=== PATIENT | female | born 1950 | race Caucasian/White ===

== ENCOUNTER 2016-11-20 15:28 | Emergency (ER) | payer OTHER, MEDICARE ==
[~2016-11-20 15:28] MED LIST: CIPRO500 M1 PO
[2016-11-20 16:03] LABS: ABSOLUTE BASOPHIL COUNT 0 /CUMM (0.0-0.2); ABSOLUTE EOSINOPHIL COUNT 0.2 /CUMM (0.0-0.7); ABSOLUTE GRANULOCYTE CT 5.1 /CUMM (1.4-6.5); ABSOLUTE LYMPH COUNT 2.2 /CUMM (1.2-3.4); BASOPHIL % 0.3 % (0.0-2.0); EOSINOPHIL % 1.8 % (0-5); GRANULOCYTE % 59.8 % (42.2-75.2); HEMATOCRIT 47.7 % (37-47); MEAN CORPUSCULAR HGB 35.1 PG (27.0-31.0); MEAN CORPUSCULAR HGB CONC 34.8 G/DL (33.0-37.0); MEAN PLATELET VOLUME 8.3 FL (7.4-10.4); PLATELET COUNT 242 /CUMM (130-400); RBC DISTRIBUTION WIDTH 13.3 % (11.5-14.5); RED BLOOD CELL CT 4.73 /CUMM (4.20-5.40); WHITE BLOOD CELL COUNT 8.5 /CUMM (4.8-10.8)
--- NOTE | 2016-11-20 17:46 | ED GI/GU/ABDOMINAL COMPLAINT ---
History of Present Illness General Chief Complaint: Abdominal Pain/Flank Pain Stated Complaint: PT HAS PAIN IN ABDOMINAL PAIN, Source: patient, old records Exam Limitations: no limitations Vital Signs & Intake/Output Vital Signs & Intake/Output Vital Signs Date Time Temp Pulse Resp B/P Pulse O2 O2 Flow FiO2 Ox Delivery Rate 11/20 1819 97.6 90 18 134/80 96 Room Air Room Air 11/20 1539 97.8 106 18 132/86 95 Room Air Allergies Coded Allergies: No Known Allergies (02/11/16) Reconcile Medications Ciprofloxacin HCl (Cipro) 500 MG TABLET 1 TAB PO BID INFECTION Magnesium Citrate (Citrate Of Magnesia) 300 ML SOLUTION 300 ML PO DAILY PRN CONSTIPATION Triage Note: 66 Y/0 FEMALE C/O BILATERAL LOWER ABDOMINAL PAIN X 3 WEEKS; STATES PAIN IS INTERMITTENT AND DENIES PAIN AT PRESENT. PT ALSO C/O CONSTIPATION (LAST BM 4 DAYS AGO AND "SMALL" PER PT). PT STATING SHE STOPPED DRINKING WEEKS AGO AND SAW ON TV THAT DRINKING CAN CAUSE "GASTRO PROBLEMS" SO SHE CAME TO ED FOR EVAL. ALSO REPORTS INTERMITTENT URINARY DIFFICULTIES ("I GET THE URGE TO GO BUT THEN I ONLY GO IN A FEW DROPS"). PT APPEARS IN NO ACUTE DISTRESS DURING TRIAGE. Triage Nurses Notes Reviewed? yes ? N Is pt currently ? No Onset: Gradual Duration: day(s): (4), constant Timing: recent history Quality/Severity: aching, BLOATING Severity Numbers: 5 Location: generalized abdomen Radiation: no radiation Activities at Onset: none Prior Abdominal Problems: none No Modifying Factors: none Associated Symptoms: DENIES HPI: 66-year-old female presents emergency room with history of hypothyroid depression complaining constipation for the past one half weeks however worse over the past 4 days stating she has not had a bowel movement in 4 days. She is complaining of generalized abdominal bloating pressure pain. She's been using uiyt-[id number] stool softeners without improvement. She denies any nausea vomiting no black or bloody stools. Patient states that the past she was drinking one 24 ounce can of beer a night however stopped 12 days ago and read online that this could be cause of stopping the alcohol. No history of abdominal surgeries in the past she's never been seen by GI or had a colonoscopy before. No recent weight loss. She denies any black or bloody stools prior to these episodes occurring. She denies any chest pain, shortness of breath urinary symptoms or any other complaints or no modifying factors or associated symptoms otherwise (RADHAMES DIAZ) Past History Travel History Traveled to [place] past 21 day No Medical History Any Pertinent Medical History? 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 No (RADHAMES DIAZ) Review of Systems Review of Systems Constitutional: Reports: see HPI. All Other Systems: Reviewed and Negative Comments Review of systems: See HPI, All other systems negative. Constitutional, no chills no fever, no malaise HEENT: No visual changes no sore throat no congestion Cardiovascular: No chest pain , no palpitation Skin, no jaundice no rashes, no change in skin Respiratory: No dyspnea no cough no sputum GI: No nausea no vomiting, no diarrhea : No dysuria Muscle skeletal: No joint pain, no back pain, no neck pain, Neurologic: No numbness no headache Psych: No stress Heme/endocrine: No bruising no bleeding Immunology: No lymphadenopathy (RADHAMES DIAZ) Physical Exam Physical Exam General Appearance: well developed/nourished, no apparent distress, alert, awake Gastrointestinal: normal bowel sounds, soft, non-tender, no organomegaly Comments: Well-developed well-nourished person in no acute distress HEENT: Normal EENT exam; PERRL, EOMI, HEAD is atraumatic. moist mucous membranes. Neck: Supple, no lymphadenopathy, normal range of motion Back: Nontender, no CVA tenderness. Full range of motion Cardiovascular: Regular rate and rhythms no murmurs rubs Respiratory: No respiratory distress. Patient speaking in full complete sentences. Breath sounds clear to auscultation bilaterally: NO W/R/R Abdomen: Soft, nontender nondistended, no appreciable organomegaly. Normal bowel sounds. No rebound/guarding, No appreciable enlargement of the abdominal aorta, No ascites. Extremity: No edema, full range of motion of extremities Neuro: Alert oriented x3, motor sensory normal, There were no obvious focal neurologic abnormalities. Skin: No appreciable rash on exposed skin, skin is warm and dry. Psych: Mood and affect is normal, memory and judgment is normal. Core Measures ACS in differential dx? No Severe Sepsis Present: No Septic Shock Present: No (ELVA PEREYRA,RADHAMES) Progress Differential Diagnosis: AAA, appendicitis, biliary colic, bowel obstruction, colon cancer, cholecystitis, diverticulitis, endometritis, esophageal varices, gastritis, hepatitis, hernia, ischemic bowel, inflamm bowel dis, kidney stone, Bebe-Yoko tear, ovarian cyst, ovarian torsion, pancreatitis, peptic ulcer, PUD/GERD, perforated viscous, SBO, UTI/pyelo Plan of Care: Orders Procedure Date/time Status URINALYSIS 11/20 1541 Complete LIPASE 11/20 1541 Complete LACTIC ACID 11/20 1541 Complete COMPREHENSIVE METABOLIC PANEL 11/20 1541 Complete CBC WITHOUT DIFFERENTIAL 11/20 1541 Complete AMYLASE 11/20 1541 Complete Laboratory Tests 11/20/16 1841: Lactic Acid Cancelled 11/20/16 1556: Urine Color YEL, Urine Clarity CLEAR, Urine pH 7.0, Ur Specific [place] 1.010, Urine Protein NEG, Urine Ketones NEG, Urine Nitrite NEG, Urine Bilirubin NEG, Urine Urobilinogen 0.2, Ur Leukocyte Esterase NEG, Ur Microscopic EXAM NOT REQUIRED, Urine Hemoglobin NEG, Urine Glucose NEG 11/20/16 1552: Anion Gap 9, Estimated GFR > 60, BUN/Creatinine Ratio 21.1, Glucose 104 H, Lactic Acid 0.7, Calcium 10.1, Total Bilirubin 0.3, AST 22, ALT 24, Alkaline Phosphatase 57, Total Protein 6.9, Albumin 4.1, Globulin 2.8, Albumin/Globulin Ratio 1.5, Amylase 66, Lipase 205, CBC w Diff NO MAN DIFF REQ, RBC 4.73, MCV 101.0 H, MCH 35.1 H, RDW 13.3, MPV 8.3, Gran % 59.8, Lymphocytes % 26.1, Monocytes % 12.0 H, Eosinophils % 1.8, Basophils % 0.3, Absolute Granulocytes 5.1, Absolute Lymphocytes 2.2, Absolute Monocytes 1.0 H, Absolute Eosinophils 0.2, Absolute Basophils 0, PUBS MCHC 34.8 Discussed with patient and all her lab results, given duration of symptoms prescription for magnesium citrate was provided advised close follow-up with GI as well as primary care given labs agents exam is unremarkable her abdomen is soft nontender I do not believe imaging is required at this time she is a healthy female with no other comorbidities I discussed with her need for close follow-up however even possible differential if symptoms persist the patient feels chondral plan I answered all of her questions she will return anytime sooner if symptoms worsen case discussed with Dr. LIN agrees with plan (RADHAMES DIAZ) Initial ED EKG: none (RADHAMES DIAZ) Departure Departure Time of Disposition: 1803 Disposition: HOME OR SELF CARE Condition: Stable Clinical Impression Primary Impression: Constipation Referrals: YANET PATRICK,RENY PEREYRA,PHILIP EDWARDS (PCP/Family) Additional Instructions: FOLLOW UP WITH YOUR PMD TOMORROW FOR REPEAT EVALUATION ON THURSDAY [employer] DR HOLT. MAGNESIUM CITRATE DIRECTED. DRINK PLENTY OF CLEAR FLUIDS, INCREASE FIBER INTAKE. RETURN AT ANYTIME SOONER WITH ANY CONCERNS YOUR PRESCRIPTION WAS SENT TO [facility] Departure Forms: Customer Survey General Discharge Information Prescriptions: Current Visit Scripts Magnesium Citrate (Citrate Of Magnesia) 300 ML PO DAILY PRN CONSTIPATION #600 ML (RADHAMES DIAZ) PA/RETORT FURNACE OPERATOR Co-Sign Statement Statement: ED Attending supervision documentation- [X] I saw and evaluated the patient. I have also reviewed all the pertinent lab results and diagnostic results. I agree with the findings and the plan of care as documented in the PA's/RETORT FURNACE OPERATOR's documentation. [X] I have reviewed the ED Record and agree with the PA's/RETORT FURNACE OPERATOR's documentation. [] Additions or exceptions (if any) to the PAs/RETORT FURNACE OPERATOR's note and plan are summarized below: [] (DELIA PATRICK,SINA)
[2016-11-20] MEDS ORDERED: CITRATE OF MAG300 ML PO (18:06)
[2016-11-20 18:19] VITALS: BP 134/80
== END 2016-11-20 19:01 ==
LOC: ERH 15:28
PROVIDERS: Emergency Medicine
DX: K59.00 Constipation, unspecified (principal)
CPT/HCPCS: 81003

== ENCOUNTER 2017-05-17 10:50 | Inpatient (IN) | payer OTHER, MEDICARE ==
[~2017-05-17] VITALS: Ht 162.6 cm; Wt 49.0 kg
[~2017-05-17 10:50] MED LIST changes: +CITRATE OF MAG300 ML PO
--- NOTE | 2017-05-17 11:03 | NUR ---
TRIAGE: 67 Y/O FEMALE [place] FROM HOME. PD WAS CONTACTED BY PATIENT'S NEIGHBOR BECAUSE THEY HAD NOTICIED THE PATIENT BURYING HER PET CAT. PATIENT REPORTED THAT SHE "STRANGLED CAT AT 0400 THIS MORNING AND KILLED IT BECAUSE IT WAS THE DEVIL. AFTER REPORTING THAT SHE KILLED THE CAT, SHE ADMITTED TO BURYING IT UNDER AN KATARZYNA STATUE. ALSO NOW ADMITS TO SHOVING A LIT END OF A CIGARETTE IN HER CAT'S THROAT. PATIENT ARRIVES TEARFUL YET COMPLIANT. DENIES SUICIDALITY OR HOMICIDALITY. AGREEABLE WITH CURRENT PLAN OF CARE. WANDED BY SECURITY - CHANGING INTO [facility].
[2017-05-17 11:34] LABS: ABSOLUTE BASOPHIL COUNT 0 /CUMM (0.0-0.2); ABSOLUTE EOSINOPHIL COUNT 0.1 /CUMM (0.0-0.7); ABSOLUTE GRANULOCYTE CT 11.1 /CUMM (1.4-6.5); ABSOLUTE LYMPH COUNT 1.7 /CUMM (1.2-3.4); ABSOLUTE MONOCYTE COUNT 1.1 /CUMM (0.10-0.60); BASOPHIL % 0.1 % (0.0-2.0); EOSINOPHIL % 0.8 % (0-5); GRANULOCYTE % 78.9 % (42.2-75.2); MEAN CORPUSCULAR HGB 33.8 PG (27.0-31.0); MEAN CORPUSCULAR VOLUME 99.4 FL (81.0-99.0); MEAN PLATELET VOLUME 7.2 FL (7.4-10.4); PLATELET COUNT 263 /CUMM (130-400); RBC DISTRIBUTION WIDTH 13.5 % (11.5-14.5); RED BLOOD CELL CT 4.73 /CUMM (4.20-5.40); WHITE BLOOD CELL COUNT 14.1 /CUMM (4.8-10.8)
--- NOTE | 2017-05-17 11:50 | NUR ---
DR PLUMMER AT BEDSIDE FOR EVAL
--- NOTE | 2017-05-17 12:05 | ED PSYCHIATRIC COMPLAINT ---
History of Present Illness General Chief Complaint: Psychiatric Related Complaint Stated Complaint: BIBA BY PD, ISSUES WITH PET Source: patient, EMS, police Exam Limitations: PSYCHIATRIC DISORDER Allergies Coded Allergies: No Known Allergies (02/11/16) Reconcile Medications Ciprofloxacin HCl (Cipro) 500 MG TABLET 1 TAB PO BID INFECTION Levothyroxine Sodium (Synthroid) 50 MCG TABLET 0.05 MG PO 1/2 HR AC HYPOTHYROIDISM (Reported) Magnesium Citrate (Citrate Of Magnesia) 300 ML SOLUTION 300 ML PO DAILY PRN CONSTIPATION Risperidone (Risperdal) 1 MG TABLET 1 MG PO BID MOOD STABILIZER (Reported) Trazodone HCl 100 MG TABLET 100 MG PO AT BEDTIME SLEEP HELP (Reported) Triage Note: TRIAGE: 67 Y/O FEMALE KASIA FROM HOME. PD WAS CONTACTED BY PATIENT'S NEIGHBOR BECAUSE THEY HAD NOTICIED THE PATIENT BURYING HER PET CAT. PATIENT REPORTED THAT SHE "STRANGLED CAT AT 0400 THIS MORNING AND KILLED IT BECAUSE IT WAS THE DEVIL. AFTER REPORTING THAT SHE KILLED THE CAT, SHE ADMITTED TO BURYING IT UNDER AN KATARZYNA STATUE. ALSO NOW ADMITS TO SHOVING A LIT END OF A CIGARETTE IN HER CAT'S THROAT. PATIENT ARRIVES TEARFUL YET COMPLIANT. DENIES SUICIDALITY OR HOMICIDALITY. AGREEABLE WITH CURRENT PLAN OF CARE. WANDED BY SECURITY - CHANGING INTO [facility]. Triage Nurses Notes Reviewed? yes HPI: Patient presents on a police emergency evaluation request after killing her. According to the police report she strangler pet at about 4:00 this morning because it was "the devil". The police report also documents "after killing her cat placed it next to an [place] state because was "evil" in her neighbor's yard shoved a cigarette in the throat". Patient reports to me that she does not know why she is here in the emergency department. She recalls she was brought by ambulance but she cannot state who called the ambulance. I asked if it might have been a neighbor but she states that she generally keeps to herself. I suspect that it was a neighbor who called because the patient had apparently placed In the neighbor's yard along with the katarzyna statue. Patient has no specific complaints currently. 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 see below for history Family History Hx Contributory? No (MONICA PATRICK,SCARLET Dunbar) Review of Systems Review of Systems Constitutional: Denies: see HPI. (MONICA PATRICK,SCARLET Dunbar) Physical Exam Physical Exam General Appearance: see below Neurological/Psychiatric: see below Comments: General: Alert, calm, cooperative Head: Normocephalic, atraumatic Eyes: Normal inspection, no nystagmus, EOMI Ears: Normal inspection Nose: Normal inspection Throat: Moist mucosa Neck: Supple, no goiter Heart: Regular rate and rhythm, no murmurs rubs or gallops Lungs: Clear to auscultation bilaterally with good air entry Abdomen: Soft nontender nondistended, normal bowel sounds Chest: Nontender Extremities: Normal range of motion grossly, no tremors present, no cyanosis clubbing or edema of the upper extremities Neurologic: cranial nerves II through XII grossly intact, speech clear, gait normal Psychiatric: Relatively normal affect, although during interview the patient did not express any obvious delusions she was reluctant to provide much history (KAVITHA PATRICK,POLO Salamanca) SAD PERSONS SAD PERSONS Response Value Age <19 or >45 years? yes 1 Depression/Hopelessness? yes 2 Excessive Ethanol/Drug Use? yes 1 Rational Thinking Loss? yes 2 Social Support? has no support 1 Total 7 SAD PERSONS Done? yes (MONICA PATRICK,SCARLET Dunbar) Progress Differential Diagnosis: PSYCHOSIS, PARANOIA Comments: 05/17/2017 1:49:57 PM shortly after speaking with crisis (and ordering medications suggested) patient now seems to be escalating and becoming confrontational with the emergency department staff. I feel she now requires sedation to prevent harming herself or others. I feel this patient is psychotic and very likely paranoid given what she did to her cat. 05/17/2017 3:57:56 PM patient will be committed per crisis. (POLO PLUMMER MD) Plan of Care: Orders Procedure Date/time Status VALPROIC ACID 05/25 0600 Active Current Medications Sig/Alida Start time Last Medication Dose Stop Time Status Admin Divalproex Sodium 500 MG 05/21 AC (Depakote ER) Divalproex Sodium 250 MG 0805/21 08 AC (Depakote ER) Risperidone 2 MG 0800,05/21 08 AC (Risperidone) Risperidone 0.5 MG Q6P PRN 05/20 2145 AC (Risperidone) Acetaminophen 650 MG Q6P PRN 05/18 1330 AC 05/19 (Tylenol) 0147 Al Hydroxide/Mg 30 ML Q4-6 PRN PRN 05/18 1330 AC Hydroxide (Maalox Plus) Magnesium Hydroxide 30 ML AT BEDTIME NEED.. 05/18 1330 AC (Milk Of Magnesia) Levothyroxine Sodium 0.05 MG DAILY AC 05/18 1321 AC 05/21 (Synthroid) 0642 Trazodone HCl 100 MG QPM 05/17 2200 AC 05/20 (Desyrel) 9 Hand-Off Endorsed To: POLO PLUMMER MD Endorsed Time: 0700 Pending: consult (MONICA PATRICK,SCARLET Dunbar) Departure Departure Condition: Stable Referrals: DILAN PEREYRA,PHILIP EDWARSD (PCP/Family) Departure Forms: Customer Survey General Discharge Information (POLO PLUMMER MD) Departure Disposition: STILL A PATIENT Clinical Impression Primary Impression: Psychotic disorder Comments pt signed out to dr. loomis 05/17/17, 7pm pt signed out to dr. loomis 05/18/17, 7am (SCARLET LOOMIS MD) confrontational with the emergency department staff. I feel she now requires sedation to prevent harming herself or others. I feel this patient is psychotic and very likely paranoid given what she did to her cat. 05/17/2017 3:57:56 PM patient will be committed per crisis. (POLO PLUMMER MD) Hand-Off Endorsed To: POLO PLUMMER MD Endorsed Time: 0700 Pending: consult (MONICA PATRICK,SCARLET Dunbar) Departure Departure Condition: Stable Referrals: DILAN PEREYRA,PHILIP EDWARDS (PCP/Family) Departure Forms: Customer Survey General Discharge Information (POLO PLUMMER MD) Departure Disposition: STILL A PATIENT Clinical Impression Primary Impression: Psychotic disorder Comments pt signed out to dr. loomis 05/17/17, 7pm pt signed out to dr. loomis 05/18/17, 7am (MONICA PATRICK,SCARLET Dunbar)
--- NOTE | 2017-05-17 13:01 | NUR ---
CRISIS MEETING WITH PT IN ROOM 15
--- NOTE | 2017-05-17 14:02 | NUR ---
PT THREATENING STAFF AND COMING OUT OF ROOM 15. PT MEDICATED WITH ATIVAN 2MG, BENADRYL 50MG AND HALDOL 10MG IM. PT STATED "THE WORLD WAS OKAY THIS MORNING AND IF WE MEDICATE HER THINGS WOULD NOT BE OK AND THEY WOULD BE LOOKING FOR HER". SECURITY ASSISTED RNS IN GIVING IM MEDICATIONS. SITTER AT DOOR.
--- NOTE | 2017-05-17 14:31 | NUR ---
THIS RN CALLED DIETARY TO ORDER PT LUNCH TRAY
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
--- NOTE | 2017-05-17 15:48 | NUR ---
Pt. seen by Crisis. Pt. is delusional and needs hospitalization. Pt's infor was faxed to [facility] and [facility]. Pt. is also on a PEC which is in Crisis Office.
--- NOTE | 2017-05-17 15:52 | NUR ---
PT ASLEEP AT THIS TIME. RESPIRATIONS EQUAL AND UNLABORED. SITTER AT DOOR.
--- NOTE | 2017-05-17 16:47 | NUR ---
PER SITTER, DURING CHECKS THEY FOUND THAT PT HAD URINATED ON THE BED. PT WAS CHANGED, BED WAS CLEANED AND REMADE. SITTER AT DOOR.
--- NOTE | 2017-05-17 16:53 | NUR ---
URINE TRIO SENT TO LAB
--- NOTE | 2017-05-17 17:24 | NUR ---
PT ASLEEP AT THIS TIME ON HER LEFT SIDE. RESPIRATIONS EQUAL AND UNLABORED. SITTER AT DOOR.
--- NOTE | 2017-05-17 18:45 | NUR ---
SITTER AND MST HAD TO CHANGE PT'S SCRUBS AGAIN DUE TO PT WETTING THE BED. PT DROWSY BUT REDIRECTABLE. PT CHANGED, LINENS CHANGED. SITTER AT DOOR.
--- NOTE | 2017-05-17 19:30 | NUR ---
PT ASLEEP ON HER LEFT SIDE FACING DOOR. PT'S RESPIRATIONS ARE EQUAL AND UNLABORED. SITTER AT DOOR.
--- NOTE | 2017-05-17 21:09 | NUR ---
PT REMAINS ASLEEP AT THIS TIME. RESPIRATIONS EQUAL AND UNLABORED. SITTER AT DOOR.
--- NOTE | 2017-05-17 22:15 | NUR ---
PT CONTINUES TO SLEEP ON BED IN ROOM 15. SITTER AT DOOR.
--- NOTE | 2017-05-17 22:45 | NUR ---
PT ASLEEP AT THIS TIME AND WAS SEDATED WHEN AWOKEN FROM EARLIER MEDICATIONS. HOLDING TRAZADONE AND RISPERIDONE DOSE AT THIS TIME. SITTER AT DOOR.
--- NOTE | 2017-05-18 00:33 | NUR ---
PT ASLEEP SITTER IN PLACE.
--- NOTE | 2017-05-18 03:15 | NUR ---
PT ASLEEP NO CO SITTER IN PLACE.
--- NOTE | 2017-05-18 07:30 | NUR ---
PT IS AWAKE AND ALERT, BREAKFAST TRAY AT BEDSIDE. PT HAS NO COMPLAINTS AT THIS TIME. SITTER REMAINS AT DOORWAY
--- NOTE | 2017-05-18 10:36 | NUR ---
PT MEDICATED DOCUMENTED IN EMAR. PT REQUESTING TO SEE A HEALTH SANITARIAN. ANALYST PROGRAMMER SERVICES PAGED.
--- NOTE | 2017-05-18 13:58 | NUR ---
MEDICATED ORDERED (SEE MAR)
--- NOTE | 2017-05-18 15:43 | NUR ---
REPORT RECEIVED ON PT AND RN CARE ASSUMED SITTER REMAINS AT DOOR. PT REQUESTING TO SPEAK TO MEDICINAL PLANT PICKER AND HER PSYCHIATRIST. CRISIS NOTIFIED. CLINICAL STATUS OTHERWISE UNCHANGED
--- NOTE | 2017-05-18 16:05 | IP CRISIS DIAG ASSESS PSYCH ---
Diagnostic Assessment Basic Assessment Insurance Authorization: Insurance #1: Insurance name: MEDICARE A BEHAVIORAL HEALTH Phone number: Policy number: [id number] Group number: Authorization number: Per [facility] pt has medicare covered services only and does not have medicaid Primary Care Physician: Patient's PCP: PHILIP VILLARREAL PCP's Patient's Quote: "I want to see a Supervisor Reclamation" Present Illness: Pt. is a 67 year old female brought to ED on a PEER after neighbors called the police to report that pt. was burying her cat in their backyard. According to the PEER, pt. reported that she had strangled her pet cat at 4:00am today because it was the devil and then buried it next to an azalia statue in her neighbors yard. Pt. carries a diagnosis of Bipolar Disorder and has recently started treatment at the end of March at [facility] with Dr. Scherer. Dr. Scherer's last two progress notes from April 06 and May 04 do not indicate that pt. was delusional or experiencing any significant psychiatric symptoms at that time. Also, the progress notes indicate that Dr. Scherer had discontinued the Depakote that pt. had been on (prescribed by her previous psychiatrist, Dr. Ashok Arboleda in [place]) and had reduced the Risperdal that she had been on from 2mg to 1.5mg. When pt. was seen by this Floor Covering Printer, she was alert and oriented to time and place, but did not understand why she was brought to the ED. Pt. immediately asked to see a "digital marketing strategist ", telling this Floor Covering Printer that the people who sent her to the ED had told her that she would be able to talk to one when she got here. After this Clinician told pt. that she would not be able to talk to a felled seam operator chainstitch, she became somewhat angry but then did cooperate with interview. Pt's thought process was disorganized and tangential as she kept on reporting events from that had occurred 25 or more years ago whenever this Clinician asked what had happened to her cat this morning. Pt. also kept losing her train of thought, but eventually acknowledged that she strangled her pet cat this morning because it was the devil and that it was coming towards her and then scratched her on the arm. Pt. reported that she has been watching Moravian programming on TV recently and that they were giving her messages that were written across the bottom of the TV screen. Pt. also said that people were watching her through the TV. Pt. also told this Clinician that she had made a "deal" with God at some time in the past to be used by him to do his will. Pt. also reported that about 25 years ago, she had also strangled her pet dog because it turned into the devil. VILMA BROWN [facility]> 05/17/17 I called [facility] and [facility], as they were the only hospitals in [place] that had beds , and either one of them were able to review tonight, they received the referral and suggested to follow up Thursday. I tried calling her contact/collateral and did not answer. This evening pt was seen asleep, it was recommended unless she wake up not to disturb her as she had been previously agitated all shift, due to psychotic symptoms. If she wakes I will remind her that she is on a PEC and pending inpatient hospitalization. AGUEDA ENG [facility]> 05/17/17 Crisis met with pt in attempts to do a re-eval and she refused to talk to this clinician and demanded her felled seam operator chainstitch and psychiatrist come to speak with her. Informed pt that she is being Dr Mckinley noted that pt's sodium level is low. Dr. Verde recommended to restrict fluids by a "free Water restriction of 1500 ML and to repeat level tomorrow." Dr. Mckinley informed. JOSSELYN PARHAM [facility]> 05/18/17 Diagnostic assessment is limited as pt refused to speak with this clinician and therefore socail hx was not able to be completed. Patient's Address: [address] [place] [address] Other Phone Number: Who Do You Live With? Patient/Self Primary Language? Sami Family/Informants Interviewed: Principal Clerk Typist of [facility] where pt. lives (Frank Freeman) [phone] Allergies - Coded Allergies: No Known Allergies (02/11/16) Current Medications - Scheduled Medications Ciprofloxacin HCl (Cipro) 500 MG TABLET 1 TAB PO BID INFECTION #20 TAB Prescribed by SINA LIN MD on 02/11/16 Scheduled PRN Medications Magnesium Citrate (Citrate Of Magnesia) 300 ML SOLUTION 300 ML PO DAILY PRN CONSTIPATION #600 ML Prescribed by RADHAMES DIAZ on 11/20/16 Past History Past Surgical History Surgical History MASECTOMY (R) Abuse/Trauma History Trauma History/Current Trauma: refuses to answer Psychosocial History Strengths/Capabilities: In current treatment, has housing Physical Limitations (Interventions): None known Psychiatric Treatment History Psych Treatment Psychiatric Treatment Yes Inpatient Treatment Yes Outpatient Treatment Yes Location of Treatment OP-Dr. Delgadillo,Dr. Ry Shah,Dr. Awilda Shah; IP-[facility], one other Reason for Treatment Bipolar Disorder Dates of Treatment OP- last 25 years; IP - twice about 25 yrs. ago Response to Treatment unk Diagnosis by History: Bipolar Disorder Risk Factors: age (under 24/over 65), high anxiety/distress, history of Violence , history of suicide atmpts, SA/MH hospitalized, isolate/no social support, poor impulse control, harm to animals, lives alone, limited support Substance Use/Abuse History Drug Use/Abuse minimum 12mo Hx Substances Used/Abused No Substance Abuse Treatment Substance Abuse Treatment Past Substance Abuse [place] No Education History Highest Level of Education: not sure Current Mental Status Mental Status Orientation: Person, Place Affect: Constricted Speech: WNL Neuro-vegetative: Concentration Poor, Sleep Disturbance Appearance Appearance- Dress/Hygiene: WNL Behaviors Thought Process: Disorganized, Tangential Thought Content: Delusions, Ideas of Reference, Anabaptism Memory: WNL Insight: Poor SI/HI Risk Assessment - Minimum 6mo History- Past Suicidal Ideation/Attempts Yes (Pt. reports one by OD yrs ago) Current Suicidal Ideation/Att No (Pt. denies) Past Homicidal Ideation/Att: Yes (Killed two pets, one this AM) Current Homicidal Ideation/Attempts No (Pt. denies) Degree of Intent: None Danger To: Others (animals) Gravely Disabled: Inability, Lack of Insight, Poor Impulse Control, Poor Judgment Risk Factors: age (under 24/over 65), high anxiety/distress, history of Violence , history of suicide atmpts, SA/MH hospitalized, isolate/no social support, poor impulse control, harm to animals, lives alone, limited support Lethality Ratin (mild) Needs/Init [place] Plan/Goals: safety and stabilization of sx, individual group and family therapy, med eval AUDIT-C Questionnaire: AUDIT-C Questionnaire: Response Value ETOH use in the past year Never 0 # drinks typical/day Doesn't Drink 0 6 or > drinks per occasion Never 0 Total 0 DSM5/PS Stressors/Medical Prob Diagnosis' (DSM 5, Stressors, Medical): F31.2 - Bipolar I D/O, manic psychotic; Stressors - limjited support, new psychiatric provider recently. Medical - hypothyroidism Current GAF: 24 Comments: Delusional, recently killed pet cat because thought it was devil - gravely disabled and in need of hospitalization.
--- NOTE | 2017-05-18 16:05 | SOCIAL WORKER PROG NOTE PSYCH ---
See Addendum Social Work Progress Note Progress Note Unable to complete social hx as pt refused to speak to security control assessor.
--- NOTE | 2017-05-18 18:04 | NUR ---
RE-ASSESSMENT PERFORMED, CLINICAL STATUS UNCHANGED. SITTER REMAINS AT DOOR.
--- NOTE | 2017-05-18 20:23 | NUR ---
CLINICAL STATUS REMAINS UNCHANGED. ADMISSION TO [facility] ANTICIPATED. SITTER PRESENT
--- NOTE | 2017-05-18 22:53 | NUR ---
PT ADMITTED TO [facility], B--3, BED 2. ORAL REPORT GIVEN TO SAKINA SALDIVAR PT READY FOR TRANSFER
--- NOTE | 2017-05-18 23:00 | NUR ---
SECURITY CALLED TO TRANSFER PT TO [facility].
[2017-05-18 23:13] VITALS: BP 122/72
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
[2017-05-19] MEDS ORDERED: SYNTHROID50 MCG PO (00:26)
[2017-05-19] MEDS ORDERED: RISPERDAL1 M1 PO (00:28)
[2017-05-19] MEDS ORDERED: TRAZODONE HCL100 M1 PO (00:29)
--- NOTE | 2017-05-19 04:33 | NUR ---
AWAKE MOST OF THE NIGHT.
[2017-05-19 07:43] VITALS: BP 95/61
--- NOTE | 2017-05-19 11:31 | NUR ---
PATIENT IS CALM AND COOPERATIVE WITH STAFF AND UNIT RULES. UNSTABLE MOOD, LABILE AND TEARFUL AT TIMES. PATIENT STARTED CRYING DURING PLANNING MEETING DUE TO MISSING HER DOGS. PRESENT IN [facility], INTERACTS WITH [facility] AND STAFF. NORMAL APETITE. DENIES SI.
[2017-05-19 12:42] VITALS: BP 129/82
--- NOTE | 2017-05-19 12:57 | NUR ---
PT EDUCATED ON THE FACT THERE IS A 1,500ML FLUID RESTRICTION PLACED (PER PT SHE "HAD NO IDEA" AND INFORMED TO MONITOR THIS IT IS IMPORTANT RE: HER ELECTROLYTES AND VERBALIZED UNDERSTANDING. PER PT REPORT HAD APPROXIATELY 1,000CC OF FLUID AND UNDERSTANDS ONLY 500CC IS LEFT IN HER DAILY ALLOTTMENT. DR. SO PAGED AND AWAITING CALL BACK-WANT TO RUN BY IF THE FLUID RESTRICTION NEEDS TO BE CONTINUED (LEVEL OF SODIUM [id number]).
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
--- NOTE | 2017-05-19 13:25 | NUR ---
DR. SO REMINDED OF H&P AND ALSO INFORMED ON PT'S CURRENT SODIUM LEVEL AND PER MD THE FLUID RESTRICTION CAN BE DISCONTINUED.
[2017-05-19 15:51] VITALS: BP 92/59
--- NOTE | 2017-05-19 17:07 | History & Physical ---
General Information and HPI History of Present Illness: Patient is a 67-year-old female whose medical history is significant for hypothyroidism, breast cancer status post lumpectomy and mastectomy with radiation therapy 16 years ago, polycythemia status post phlebotomy therapy in the past and bipolar disorder. She was brought into the emergency room for evaluation by the police after labels called the Police Department reporting that she had killed a pet cat. In the emergency room she was found to have paranoid thoughts. Her symptoms began to escalate and she became confrontational. She was placed on a PEC on admitted to the inpatient psychiatric unit. She offers no complaints today. Denies chest pain or cough. Denies shortness of breath. Denies nausea vomiting. Denies abdominal pain. Denies diarrhea or constipation. Denies heat or cold intolerance. Denies dysuria. All other systems reviewed and noncontributory. Allergies/Medications Allergies: Coded Allergies: No Known Allergies (02/11/16) Home Med list Ciprofloxacin HCl (Cipro) 500 MG TABLET 1 TAB PO BID INFECTION Levothyroxine Sodium (Synthroid) 50 MCG TABLET 0.05 MG PO 1/2 HR AC HYPOTHYROIDISM (Reported) Magnesium Citrate (Citrate Of Magnesia) 300 ML SOLUTION 300 ML PO DAILY PRN CONSTIPATION Risperidone (Risperdal) 1 MG TABLET 1 MG PO BID MOOD STABILIZER (Reported) Trazodone HCl 100 MG TABLET 100 MG PO AT BEDTIME SLEEP HELP (Reported) Past History Travel History Traveled to [place] past 21 day No Medical History Neurological: NONE EENT: NONE Cardiovascular: NONE Respiratory: NONE Gastrointestinal: NONE Hepatic: NONE Renal: NONE Musculoskeletal: NONE Psychiatric: bipolar disease Endocrine: hypothyroidism Blood Disorders: NONE Cancer(s): breast cancer BUSINESS ASST/Reproductive: NONE History of MRSA: No History of VRE: No History of CDIFF: No Isolation History: Standard Surgical History Surgical History: RIGHT MASTECTOMY Past Family/Social History Psychosocial History Where do you live? 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 Exam & Diagnostic Data Last 24 Hrs of Vital Signs/I&O Vital Signs Date Time Temp Pulse Resp B/P B/P Pulse O2 O2 Flow FiO2 Mean Ox Delivery Rate 05/19 1551 93 92/59 05/19 1242 100 129/82 05/19 0743 96.8 98 95/61 07/17 2313 98.4 91 122/72 05/18 2239 98 Room Air 05/18 2011 97.1 94 16 121/84 98 Room Air Intake & Output 05/19 1600 05/19 0800 05/19 0000 Intake Total 1000 Output Total Balance 1000 Intake, Oral 1000 Patient 48.988 kg Weight Physical Exam General Appearance Alert, Oriented X3, Cooperative, No Acute Distress Skin No Rashes, No Breakdown, No Significant Lesion HEENT Atraumatic, PERRLA, EOMI, Mucous Membr. moist/pink Neck Supple Cardiovascular Regular Rate, Normal S1, Normal S2, No Murmurs Lungs Clear to Auscultation, Normal Air Movement Abdomen Normal Bowel Sounds, Soft, No Tenderness, No Hepatospenomegaly Neurological Cranial Nerves II through XII: WNL Extremities No Clubbing, No Cyanosis, No Edema, Normal Pulses Assessment/Plan Assessment: 67-year-old female with history of hypothyroidism, breast cancer status post mastectomy radiation therapy. Admitted for decompensation of bipolar disorder. On admission found to be hyponatremic with fluid distention overnight as sodium level has improved. She does admit to drinking up to 11 cups of coffee on a daily basis. She offers no medical complaints at present. Recommendations: - Okay to discontinue fluid restriction however I would not recommend patient drinking up to 11 cups of coffee daily. -Continue her Synthroid at her home dose. -She did have leukocytosis on admission likely reactive. Repeat CBCs a.m. -Management of her bipolar disorder as directed by the psychiatric service As Ranked By This Provider Problem List: 1. Psychotic disorder Miscellaneous Miscellaneous Documentation Attending Case Discussed With: PAMELA PATRICK,TYSHAWN Torres Primary Care Physician: PHILIP VILLARREAL Patient sees these Specialists Non Level of Patient Care: JENNIFER Low
--- NOTE | 2017-05-19 17:54 | SOCIAL WORKER PROG NOTE PSYCH ---
Social Work Progress Note Progress Note 4:45pm Scar Kellogg (PA student) and this sign writer letterer or painter met with patient for initial meeting. Patient shared the event in which she killed her cat believing that it was the devil. Patient was active, spontaneous and circumstantial in her participation in this meeting. Patient reported past MH tx with inpt admissions to [facility] and [facility] as well as outpatient treatment with most recent outpt tx occurring through OPS. Patient reported that her next appointment at Outpatient is scheduled for 09/01/17. Patient did not identify any supports or family with whom she is currently in contact. She reported two marriages and divorces and stated that she does not have any contact with her son. Patient expressed interest in meeting with a sofa inspector.
[2017-05-19 19:45] VITALS: BP 112/74
--- NOTE | 2017-05-19 21:20 | NUR ---
PT IS VISIBLE ON UNIT, SITTING IN LOUNGE AND SOCIAL WITH PEERS. COOPERATIVE AND COMPLIANT WITH STAFF. NO COMPLAINTS OR SI REPORTED. ATTENDED WRAP UP MEETING. PT HAS A STABLE MOOD AND FULL RANGE AFFECT.
--- NOTE | 2017-05-20 04:11 | NUR ---
AWAKE 1/2 THE SHIFT STATES "I DON'T SLEEP AT NIGHT".
[2017-05-20 07:41] VITALS: BP 100/55
[2017-05-20 08:11] LABS: ABSOLUTE BASOPHIL COUNT 0 /CUMM (0.0-0.2); ABSOLUTE EOSINOPHIL COUNT 0.2 /CUMM (0.0-0.7); ABSOLUTE GRANULOCYTE CT 5.2 /CUMM (1.4-6.5); ABSOLUTE LYMPH COUNT 1.7 /CUMM (1.2-3.4); BASOPHIL % 0.2 % (0.0-2.0); EOSINOPHIL % 2.5 % (0-5); GRANULOCYTE % 64.2 % (42.2-75.2); HEMATOCRIT 46.4 % (37-47); MEAN CORPUSCULAR HGB 33.7 PG (27.0-31.0); MEAN CORPUSCULAR HGB CONC 33.7 G/DL (33.0-37.0); PLATELET COUNT 260 /CUMM (130-400); RBC DISTRIBUTION WIDTH 13.6 % (11.5-14.5); RED BLOOD CELL CT 4.64 /CUMM (4.20-5.40); WHITE BLOOD CELL COUNT 8.2 /CUMM (4.8-10.8)
--- NOTE | 2017-05-20 10:40 | NUR ---
SPIRITUAL CARE NOTIFIED RE: THIS PT WOULD LIKE TO SPEAK TO A JEWISH ACCOUNTANT COST TODAY, AND THIS RN WAS TOLD ONE WOULD COME DOWN BETWEEN 4-5PM.
[2017-05-20 12:10] VITALS: BP 107/56; BP 112/72
--- NOTE | 2017-05-20 13:08 | NUR ---
PATIENT CALM AND COOPERATIVE WITH STAFF AND UNIT RULES. NORMAL MOOD WITH FLAT AFFECT TO FULL RANGE. PATIENT PRESENT IN [facility], INTERACTS WELL WITH STAFF AND PEERS. NO REPORTS OF SI. NORMAL APETITE.
--- NOTE | 2017-05-20 15:48 | SOCIAL WORKER PROG NOTE PSYCH ---
Social Work Progress Note Progress Note 2:00pm Scar Kellogg (PA student) and this flex o writer operator met with patient. Upon reviewing the events leading her to current inpt admission, patient became very tearful especially regarding the of her cat. Patient acknowledged the importance of remaining in treatment and taking her medications as prescribed. Dr. Valverde discussed medications and associated questions. She agreed to resume taking Depakote and completing lab (blood) work. Patient was also in agreement with attending IOP following discharge from [facility]. A d/c date has not yet been identified. Patient stated that she was informed that she would be meeting with a clergy today and was looking forward to this. Please see Dr. Valverde's note from this meeting for further information. Patient signed the voluntary admission form and included her landlord's name as "close friend." However, she did not identify any supports, including her landlord, that she could involve in treatment: "I have no one." She stated that she has been in contact with animal control and that they are caring for her dogs at this time. Patient did not want to sign any JUVE's at this time.
[2017-05-20 16:25] VITALS: BP 97/62
--- NOTE | 2017-05-20 17:41 | CP SOUTH PROGRESS NOTE PSYCH ---
Psych (Inpt) Progress Note Progress Note Include the following elements, when applicable: Involvement in the active treatment of the patient with behavioral observations of the patient and the patient's response to the treatment. Review of the ongoing treatment process in the context of the treatment plan. Indication of how multi-disciplinary staff members are carrying out the treatment plan. Plans for future interventions and recommendations for revision of the treatment plan. Liaison with other physicians/providers. Progress Note: PSYCHIATRIST NOTE, 05/20/2017: I discussed this patient's progress to date, current mental status, treatment and discharge planning with staff team today in the daily morning BAUTISTA and Rima Umanzor LCSW, our P.A. student Scar and I met with patient together once again in individual session. Patient continued to calmly express her conviction that she had been "personally directed by God" to kill her pet cat "because the Devil was inside him...he scratched me; he had not done something like this before." We have been trying to gently challenge and explain to patient that she was acting under a delusion though it seemed "very real" to her at the time and were more emphatic in this regard today causing patient some upset but apparent release/relief of tension afterwards. She has begun to genuinely mourn her cat John who she said had begun after years with her to begin to trust her and be more affectionate. Patient agreed to sign in as a voluntary patient and is also willing to attend the [facility]; she had been afraid we would "send [her] to another hospital." So long as she can go home from here ([facility]) patient is willing to stay at long as we think she needs to/would benefit from.
--- NOTE | 2017-05-20 18:28 | NUR ---
PT IS CALM, COOPERATIVE WITH STAFF AND PEERS, AND COMPLIANT WITH UNIT RULES. MOOD IS STABLE, AFFECT APPEARS EUTHYMIC TO FULL RANGE, COMMUNICATION IS ORGANIZED AND APPEARS NORMAL IN ALL RESPECTS, AND APPETITE IS NORMAL. PT DENIES SI AT THIS TIME.
[2017-05-20 19:47] VITALS: BP 123/74
--- NOTE | 2017-05-21 06:58 | NUR ---
PT ON A PEC. PT UP A FEW TIMES. PT BIZARRE, INTERNALLY PREOCCUPIED, BUT NO BEHAVIOR PROBLEM.
[2017-05-21 07:39] VITALS: BP 113/63
--- NOTE | 2017-05-21 09:34 | NUR ---
PT A/OX3; MOOD APPEARS STABLE WITH FLAT AFFECT, CALM AND COOPERATIVE, INTERACTING WITH PEERS AND STAFF IN COMMUNITY, COMPLIANT WITH MEDICATION AND RULES, MADE STATEMENT ABOUT WANTING TO GET BETTER AND FUTURE ORIENTED, DENIES SI/HI/CH AT THIS TIME. COMMUNICATION APPEARS ORGANIZED.
[2017-05-21 12:43] VITALS: BP 105/68
--- NOTE | 2017-05-21 12:53 | SOCIAL WORKER PROG NOTE PSYCH ---
Social Work Progress Note Progress Note 11:40am This advertising copy writer met with patient. She reported improved mood which she attributes to "Somebody believed me." She further discussed this to mean feeling supported and believed by Dr. Valverde and this advertising copy writer regarding her beliefs and experiences. Patient identified yesterday's conversation with this advertising copy writer and Dr. Valverde as a "relief." Patient stated that she was able to meet with a film library clerk last night which she greatly appreciated and plans to attend jainism after discharge from this hospital. She was motivated to continue with IOP once she discharges from the hospital. Patient denied SI/HI/AH/VH. She stated that she looks forward to meeting with Dr. Valverde this afternoon.
[2017-05-21 15:42] VITALS: BP 138/88
--- NOTE | 2017-05-21 19:04 | CP SOUTH PROGRESS NOTE PSYCH ---
Psych (Inpt) Progress Note Progress Note Include the following elements, when applicable: Involvement in the active treatment of the patient with behavioral observations of the patient and the patient's response to the treatment. Review of the ongoing treatment process in the context of the treatment plan. Indication of how multi-disciplinary staff members are carrying out the treatment plan. Plans for future interventions and recommendations for revision of the treatment plan. Liaison with other physicians/providers. Progress Note: PSYCHIATRIST NOTE, 05/21/2017: I discussed this patient's interval progress to date, current mental status , treatement and discharge planning with staff team today in the daily morning ITTM and our P.A. student, Scar, and I met with patient again together in individual session.Patient is tolerating 4mg/day dose of Risperdal and Depakote ER, 750mg daily (had been on just 250mg/day for years prior to its being discontinued in our OPS) well and continues to be positive re taking these medications. Today I thought it time to begin to more openly/actively challenge patient's belief that "God told her to kill her cat;" She began to cry and lamented "you mean I killed John [her cat] for absolutely nothing, that it was 'all in my head?'" This led to further discussion of the effects of psychosis on thinking and "beliefs," that she is a truly spiritism person but was "fooled by" her thought disorder to do something "for God" which God would not ask of her. Beginning to address what actually happened is actually bringing this patient more [id number], that she didn't do what she did "in [her] right mind " but can do things which will make things better and the tragedy with her cat never repeat itself. Patient has expressed her intent to start attending a local amish once again and not keep her spiritism thinking isolated just in her own mind.
[2017-05-21 20:09] VITALS: BP 122/78
--- NOTE | 2017-05-21 22:40 | NUR ---
PT HAS BEEN WITHDRAWN AND CONSTRICTED THIS SHIFT. PT HAS BEEN LETHARGIC AND ISOLATIVE BUT HAS BEEN COMPLIANT WITH STAFF AND UNIT RULES. PT HAS NOT REPORTED ANY ABNORMAL THOUGHTS AND NO ABNORMAL OBSERVATIONS HAVE BEEN MADE. PT DENIES ANY THOUGHTS OF SI WHEN ASKED BY STAFF.
[2017-05-22 07:59] VITALS: BP 100/72
[2017-05-22 12:48] VITALS: BP 139/84
--- NOTE | 2017-05-22 14:03 | SOCIAL WORKER PROG NOTE PSYCH ---
Social Work Progress Note Progress Note This credit underwriter met with patient this afternoon. She reported improvement with mood and stated that she has been sleeping well. However, patient did complain that her sleep schedule differs from the one at home and finds it difficult to adjust to this. She stated that she enjoys going to be early (around 6pm) and waking up in the environmental sampler hours as "I like being up at night when everything's quiet." Patient discussed feeling relieved after being able to discuss the events that led to current hospital admission with Dr. Valverde. She expressed regret/remorse over killing her cat and felt that she had been brainwashed by the [employer] television show that she was watching. Patient reports that she has found the groups helpful and continues to be in agreement with attending IOP following discharge from [facility].
--- NOTE | 2017-05-22 14:55 | NUR ---
PT IS COMPALINT AND COOPERATIVE WITH UNIT RULES. PT IS OUT IN THE COMMUNITY ITNERACTING WELL WITH STAFF AND PEERS. PT MOOD IS STABLE WTIH A FULL RANGE AFFECT. PT IS ATTENDING GROUPS. PT DENIES SI THOUGHTS.
[2017-05-22 15:47] VITALS: BP 119/58
--- NOTE | 2017-05-22 18:44 | NUR ---
PT IS CALM, COOPERATIVE WITH STAFF AND PEERS, AND COMPLIANT WITH UNIT RULES. OFTEN IN MILIEU, INTERCATIGN WELL WITH OTHERS. MOOD IS STABLE, AFFECT APPEARS EUTHYMIC TO FULL RANGE, COMMUNICATION IS ORGANIZED AND APPEARS NORMAL IN ALL RESPECTS, ADN APPETITE IS NORMAL. PT DENIES SI AT THIS TIME.
[2017-05-22 19:49] VITALS: BP 112/70
--- NOTE | 2017-05-22 21:20 | CP SOUTH PROGRESS NOTE PSYCH ---
Psych (Inpt) Progress Note Progress Note Include the following elements, when applicable: Involvement in the active treatment of the patient with behavioral observations of the patient and the patient's response to the treatment. Review of the ongoing treatment process in the context of the treatment plan. Indication of how multi-disciplinary staff members are carrying out the treatment plan. Plans for future interventions and recommendations for revision of the treatment plan. Liaison with other physicians/providers. Progress Note: PSYCHIATRIST NOTE, 05/22/2017: I discussed this patient's interval progress to date, current mental status , treatment and discharge planning with staff team today in the daily morning ITTM and also our P.A. student Scar and I met patient again together in individual session. Patient continues to express her dismay at having killed her own pet cat CRANE MANAGER but is coming to a better sense of the altered state of mind she was in at the time, how to treat this and be alert to danger signs of loosening and delusional, particularly hyper/pseudoreligiously themed thinking which led up to her believing "at the moment" that her cat was "possessed by" or "was the Devil taking the form of" this pet. Patient has met a men's furnishings salesperson here on [facility] and now plans to attend services and become involved in the community life and fellowship of a local [employer] [place] "down the street" from her; she views her increasing social isolation and solitary life as contributing to her being vulnerable to delusional "yazdanism" thinking; she also will not watch Leandro Amin on T.V. and more but stick to simple video masses on the "Mosque channel." Dose of Depakote ER has been titrated up to 1,000mg/day and initial serum valproic acid level will be drawn in AM 05/25/2017; patient had been on just 250mg of Depakote daily for years prior to it being discontinued as soon as she began medication management here in [facility]. Patient is tolerating upward titration of Risperdal to 4mg/day well and appears to be responding well to it without noted side effects, daytime sedation. We are strongly recommending patient f/u in the [facility] on discharge and that consideration be given there to beginning her on Risperdal Consta depot injections.
--- NOTE | 2017-05-23 06:54 | NUR ---
SLEPT FROM 2044 TO , THEN WAS AWAKE MOST OF THE NIGHT; SHE WAS REDIRECTED BACK TO BED ADN RESTED IN BED FOR MOST OF THE NIGHT AFTERWARDS; SHE WAS SLIGHTLY PARANOID AND IRRITABLE, INSISTING THAT SHE NEVER SLEEPS AT NIGHT.
[2017-05-23 07:35] VITALS: BP 119/70
[2017-05-23 12:32] VITALS: BP 110/71
--- NOTE | 2017-05-23 12:44 | CP SOUTH PROGRESS NOTE PSYCH ---
Psych (Inpt) Progress Note Progress Note Include the following elements, when applicable: Involvement in the active treatment of the patient with behavioral observations of the patient and the patient's response to the treatment. Review of the ongoing treatment process in the context of the treatment plan. Indication of how multi-disciplinary staff members are carrying out the treatment plan. Plans for future interventions and recommendations for revision of the treatment plan. Liaison with other physicians/providers. Progress Note: Patient seen chart reviewed d/w nursing staff She reports feeling "great" denies si/hi or psychosis. she states she feels bored here "i have nothing to do and that makes me depressed" she c/o poor sleep despite nursing report stating sleeping thru the night. Med compliant no se reproted. AAOX3. CF asa. cooperative pressured speech. expansive euphoric mood and affect. tangential thought process. denies si/hi or psychosis. i/j both limited a/p bp with psychosis continue current tx plan
--- NOTE | 2017-05-23 14:17 | NUR ---
PT HAS BEEN VISIBLE IN THE MILIEU TODAY. SHE WENT TO JOURNALING GROUP THIS MORNING AND PARTICIPATED. IN THE MILIEU PT HAS BEEN INTERACTING WITH PEERS, AND COMPLYING WITH STAFF DIRECTION. SHE IS LOOKING FORWARD TO HER DISCHARGE WHICH IS TENTATIVE FOR THURSDAY. PT DENIES THOUGHTS OF HURTING HERSELF WHEN ASKED.
[2017-05-23 15:51] VITALS: BP 116/60
[2017-05-23 20:11] VITALS: BP 102/67
--- NOTE | 2017-05-23 20:39 | NUR ---
PT HAS BEEN SOCIAL ON THE UNIT WITH STAFF AND PEERS. PT HAS DISPLAYED A FULL RANGE AFFECT. NO ABNORMAL THOUGHTS OR BEHAVIOR HAS BEEN REPORTED OR OBSERVED. PT HAS BEEN COOPERATIVE AND COMPLIANT WITH STAFF AND UNIT RULES. PT DENIES ANY THOUGHTS OF SI WHEN ASKED BY STAFF.
--- NOTE | 2017-05-24 07:04 | NUR ---
PATIENT SLEPT 1/2 THE NIGHT OR LESS; SHE ATTEMPTED TO TAKE A SHOWER AT 0430, AND WAS REDIRECTED BY STAFF ABOUT 0600 SHOWER START TIME; SHE WAS IRRITABLE WITH STAFF; PATIENT AGAIN GOT INTO SHOWER AT 0530, AND REFUSED TO GET OUT OF STAFF WHEN STAFF REQUESTED.
[2017-05-24 07:49] VITALS: BP 113/67
[2017-05-24 12:03] VITALS: BP 95/64
--- NOTE | 2017-05-24 13:13 | NUR ---
PT IS PRESENT WITHIN THE UNIT AND SOCIAL WITH PEERS AND APPROPRIATE THUS FAR WITH STAFF, ABLE TO MAKE NEEDS KNOWN, MOOD STABLE WITH FULL RANGE AFFECT, + APPETITE. DID NOT ATTEND PLANNING MEETING HOWEVER WENT TO FOCUS GROUP WHERE THERE WAS + PARTICIPATION, REPORTED THAT SHE FELT GOOD AND RELAXED.
--- NOTE | 2017-05-24 13:23 | CP SOUTH PROGRESS NOTE PSYCH ---
Psych (Inpt) Progress Note Progress Note Include the following elements, when applicable: Involvement in the active treatment of the patient with behavioral observations of the patient and the patient's response to the treatment. Review of the ongoing treatment process in the context of the treatment plan. Indication of how multi-disciplinary staff members are carrying out the treatment plan. Plans for future interventions and recommendations for revision of the treatment plan. Liaison with other physicians/providers. Progress Note: Patient seen chart reviewed d/w nursing staff She reports feeling "happy" inquiring about discharge. Medication compliant no se reported. sleep slightly improved. she denies si/hi or psychosis. AAOX3 ASA pleasant no pmr/pma. fair eye contact. normal speech. great mood euphoric affect. linear denies si/hi or psychosis. i/j limited a/p BP continue current tx plan
[2017-05-24 16:04] VITALS: BP 104/69
[2017-05-24 20:15] VITALS: BP 100/59
--- NOTE | 2017-05-24 21:37 | NUR ---
ATTENDED WRAP UP STATED " MY DOGS ARE MY LIFE I MISS THEM CAN'T WAIT TO SEE THEM BUT WHEN THE TURN EVIL I HAVE TO SACRAFICE THEM".
--- NOTE | 2017-05-25 05:23 | NUR ---
SLEPT WELL AWAKE COUPLE TIME TO BATHROOM.
[2017-05-25 07:40] VITALS: BP 104/72
[2017-05-25 12:11] VITALS: BP 98/65
--- NOTE | 2017-05-25 13:27 | NUR ---
PT HAS BEEN VISIBLE IN THE MILIEU TODAY. HER GOAL TODAY WAS TALK WITH DOCTOR. PT HAS BEEN ATTENDING GROUPS, AND ACTIVELY PARTICIPATING IN THEM. SHE HAS BEEN CALM AND COOPERATIVE WITH DIRECTION GIVEN TO HER BY STAFF. SHE DENIES THOUGHTS TO HURT HERSELF WHEN ASKED.
[2017-05-25 16:05] VITALS: BP 107/62
--- NOTE | 2017-05-25 17:48 | SOCIAL WORKER PROG NOTE PSYCH ---
Social Work Progress Note Progress Note 5pm This typewriters functional tester met with patient. Patient stated that she met with Dr. Valverde today and learned that she will be discharged tomorrow. She expressed feeling positive about this and looks forward to attending IOP. She identified her goal as to "keep learning." Patient denied SI/HI/AH/VH. This typewriters functional tester will follow up with treatment team tomorrow and schedule an IOP intake assessment.
--- NOTE | 2017-05-25 19:07 | CP SOUTH PROGRESS NOTE PSYCH ---
Psych (Inpt) Progress Note Progress Note Include the following elements, when applicable: Involvement in the active treatment of the patient with behavioral observations of the patient and the patient's response to the treatment. Review of the ongoing treatment process in the context of the treatment plan. Indication of how multi-disciplinary staff members are carrying out the treatment plan. Plans for future interventions and recommendations for revision of the treatment plan. Liaison with other physicians/providers. Progress Note: PSYCHIATRIST NOTE, 05/25/2017: I discussed this patient's progress to date, current mental status, treatment and discharge planning with staff team today in the daily morning ITTM and our P.A. student Scar and I met with her again together in individual session. 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 Patient was less pressured and tangential and much less circumstantial during today's session than she had been even late last week though still somewhat labile and overemotional at times. Patient continues to be positive with regard to attending IOP ("I'll go there 5 days a week if you want me to!") but thinks she needs more activities to take up her time when she is not in program and told us she has been thinking about volunteering at the local animal halfway in [place] (where her own two dogs are currently being boarded) to start , "if they will have me." Patient had been starting to sleep better, more hours uninterrupted, up to 5.5 hrs which she says "is good for me," though she slept less well last night in anticipation of discharge early this week. She is tolerating all current medications and dosages well without daytime sedation, is alert, positive, enthusiastic, trying to be helpful to others, looking forward to discharge.
--- NOTE | 2017-05-25 19:15 | NUR ---
PT HAS BEEN PRESENT IN THE [place], WATCHING TV AND SOCIALIZING WITH STAFF AND PEERS. PT APPEARS TO BE STABLE AND HAS NOT REPORTED ANY DELUSIONAL THOUGHTS. PTS AFFECT IS EUTHYMIC TO FULL RANGE. PT DENIES ANY THOUGHTS OF SI WHEN ASKED BY STAFF AND HAS BEEN COOPERATIVE AND COMPLIANT WITH UNIT RULES.
[2017-05-25 19:54] VITALS: BP 93/57
--- NOTE | 2017-05-26 07:44 | NUR ---
PT ON A PEC. PT UP SINCE 414. SHE BELIEVES SHE IS DISCHARGING TODAY.
[2017-05-26 08:01] VITALS: BP 101/64
[2017-05-26] MEDS ORDERED: RISPERDAL1 M1 PO (11:36)
[2017-05-26] MEDS ORDERED: DIVALPROEX SOD500 M2 PO (11:36)
--- NOTE | 2017-05-26 11:39 | SOCIAL WORKER PROG NOTE PSYCH ---
See Addendum Social Work Progress Note Progress Note This software writer met with patient regarding discharge plans. Patient continued to state that she does not have any family or friends/supports that she would like to invite to a family meeting prior to [facility] d/c. She is motivated to follow through with IOP treatment recommendation and accepted an intake appointment for today, 05/26/17, at 1:30pm. She discussed interest in building a social network/ support group through outpatient treatment and also plans to attend services at a nearby [facility] on Sundays. Patient expressed feeling grateful for treatment in [facility]. She denied SI/HI/AH/VH.
--- NOTE | 2017-05-26 13:13 | NUR ---
Patient is A&O X 3, compliant and cooperative with medication and group therapies/activities. Patient is being discharged today and will be attending [facility] Intensive outpatient Program for Discharge, Folllow-up and aftercare program. Patient verbalizes the understanding of the program and acknowledges the receipt of the Emergency phone number and to use it when feeling out of control/ overwhelmed. Patient is also reminded the importance of medication compliance and the need to reach out for help when needed.
--- NOTE | 2017-05-26 13:42 | SOCIAL WORKER PROG NOTE PSYCH ---
Social Work Progress Note Progress Note Patient's W10 and Patient Health Summary was faxed to [facility] on 05/26/17 at 1327. Filed in patient's chart with confirmation page. [facility] Transfer note faxed to [phone] on 05/26/17, 5:47pm and filed in patient's chart.
--- NOTE | 2017-05-26 13:45 | CP SOUTH PROGRESS NOTE PSYCH ---
Psych (Inpt) Progress Note Progress Note Include the following elements, when applicable: Involvement in the active treatment of the patient with behavioral observations of the patient and the patient's response to the treatment. Review of the ongoing treatment process in the context of the treatment plan. Indication of how multi-disciplinary staff members are carrying out the treatment plan. Plans for future interventions and recommendations for revision of the treatment plan. Liaison with other physicians/providers. Progress Note: PSYCHIATRIST NOTE (DISCHARGE), 05/26/2017: with Scar
--- NOTE | 2017-05-26 13:46 | DISCHARGE SUMMARY REPORT-PSYCH ---
Visit Information Visit Dates/Diagnosis' Admission Date: 05/18/17 Discharge Date: 05/26/17 Reason for Admission: " Psy Discharge Primary Diag: Bipolar Spectrum Disorder MRE Mixed with psychotic features; improved Psy Discharge Secondary Diag: Hypothyroidism Hospital Course Course Allergies: Coded Allergies: No Known Allergies (02/11/16) Discharge HBIPS - Tobacco Use Treatment Offered - EtOH/Drug Use D/O Treatment Offered Metabolic Screening - Screen if on a Neuroleptic Medication - Metabolic screening should include: - Blood Pressure, BMI, Glucose or Hgb A1c, & a - Lipid profile from within the past 365 days.
== END 2017-05-26 14:30 | DRG 885 ==
LOC: ERH 10:50 → CP SOUTH 05-18 13:20 → ERHI 05-18 13:20 → EDBEDREQ 05-18 13:39 → ENTRNSPT 05-18 22:53 → CMPTRNSPT 05-18 23:06 → CP SOUTH 05-18 23:07 → ENRESERV 05-18 23:59 → CP SOUTH 05-19 16:42
PROVIDERS: Emergency Medicine; Internal Medicine; ADMIT Psychiatry & Neurology Psychiatry
DX: F31.64 Bipolar disorder, current episode mixed, severe, with psychotic features (principal); E03.9 Hypothyroidism, unspecified
CPT/HCPCS: 36415; 80307; 81001; 96372; G0463; G0480; J1200; J1630

== ENCOUNTER 2018-03-07 04:52 | Emergency (ER) | payer OTHER, MEDICARE ==
[~2018-03-07] VITALS: Ht 162.6 cm; Wt 48.1 kg
[~2018-03-07 04:52] MED LIST changes: +DIVALPROEX SOD500 M2 PO; +RISPERDAL1 M1 PO; +SYNTHROID50 MCG PO; +TRAZODONE HCL100 M1 PO
--- NOTE | 2018-03-07 05:24 | ED GI/GU/ABDOMINAL COMPLAINT ---
History of Present Illness General Chief Complaint: Female Urogenital Problems Stated Complaint: HEMATURIA Source: patient Exam Limitations: no limitations Vital Signs & Intake/Output Vital Signs & Intake/Output Vital Signs Date Time Temp Pulse Resp B/P B/P Pulse O2 O2 Flow FiO2 Mean Ox Delivery Rate 03/07 0538 95.6 99 18 101/72 93 Room Air 03/07 0537 92 Room Air 03/07 0502 95.6 135 18 100/69 92 Room Air Allergies Coded Allergies: No Known Allergies (02/11/16) Reconcile Medications Divalproex Sodium 500 MG TABLET.DR 500 MG PO mood stabilization Levothyroxine Sodium (Synthroid) 50 MCG TABLET 0.05 MG PO 1/2 HR AC HYPOTHYROIDISM (Reported) Magnesium Citrate (Citrate Of Magnesia) 300 ML SOLUTION 300 ML PO DAILY PRN CONSTIPATION Risperidone (Risperdal) 1 MG TABLET 2 MG PO to clarify thoughts Sulfamethoxazole/Trimethoprim (Bactrim Ds Tablet) 800 MG-160 MG TABLET 1 TAB PO BID INFECION Trazodone HCl 100 MG TABLET 100 MG PO AT BEDTIME SLEEP HELP (Reported) Triage Note: PT FROM HOME C/O HEMATURIA. PT STATES 3-4 DAYS AGO URINARY "PRESSURE". PT STATES LAST NIGHT SHE SAW BLOOD IN URINE. PT STATES BRIGHT RED BLOOD, NO PAIN UPON URINATION CURRENTLY BUT LAST 3-4 DAYS PT STATED BURNING. PT STATES HX OF SAME S/S DX WITH STAFF INFECTION. PTS HR 135, 02 ON RA 92%, PT DENIES SOB, "I HAVE SEVERE EMPHYSEMA". PT SPEAKING FULL SENTENCES. BP 100/69. Triage Nurses Notes Reviewed? yes ? n Is pt currently ? No Onset: Gradual Duration: day(s):, waxing and waning Location: suprapubic Radiation: no radiation Activities at Onset: none Modifying Factors: Worsens With: urinating. Associated Symptoms: dysuria HPI: 67 YO WOMAN h/o uti approximately 1 year ago with similar symptoms, presents with dysuria and hematuria for the past 2-3 days. She notes, "About 2-3 days ago, it would really burn when I urinated... Then for the past 1-2 days, there was bright red blood mixed in with the urine and some of the burning pain got better." No fever, chills, flank pain, nausea, vomiting, diarrhea. She is otherwise well. Past History Travel History Traveled to [place] past 21 day No Medical History Any Pertinent Medical History? 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 No Review of Systems Review of Systems Constitutional: Reports: no symptoms. EENTM: Reports: no symptoms. Respiratory: Reports: no symptoms. Cardiovascular: Reports: no symptoms. GI: Reports: no symptoms. Genitourinary: Reports: no symptoms. Musculoskeletal: Reports: no symptoms. Skin: Reports: no symptoms. Neurological/Psychological: Reports: no symptoms. Hematologic/Endocrine: Reports: no symptoms. Immunologic/Allergic: Reports: no symptoms. All Other Systems: Reviewed and Negative Physical Exam Physical Exam General Appearance: well developed/nourished, no apparent distress Head: atraumatic, normal appearance Eyes: Bilateral: normal appearance. Ears, Nose, Throat, Mouth: hearing grossly normal, moist mucous membrane Neck: normal inspection, supple, full range of motion Respiratory: normal breath sounds, chest non-tender, no respiratory distress, quiet respiration, lungs clear Cardiovascular: regular rate/rhythm Gastrointestinal: normal bowel sounds, soft, non-tender Back: normal inspection Extremities: normal range of motion Neurologic/Psych: no motor/sensory deficits, awake, alert, oriented x 3 Skin: intact, normal color, warm/dry Core Measures ACS in differential dx? No Sepsis Present: No Sepsis Focused Exam Completed? No Progress Differential Diagnosis: UTI/pyelo, vs other. Plan of Care: Orders Procedure Date/time Status Add-on Test (ER Only) 03/07 0530 Active CULTURE,URINE 03/07 05 Active URINALYSIS 03/07 0458 Complete Laboratory Tests 03/07/18 0510: Urine Color BLDY H, Urine Clarity TURBD H, Urine pH 6.5, Ur Specific [place] 1.020, Urine Protein 100 H, Urine Ketones NEG, Urine Nitrite POS H, Urine Bilirubin NEG@ICTO, Urine Urobilinogen 0.2, Ur Leukocyte Esterase MOD H, Ur Microscopic SEDIMENT EXAMINED, Urine RBC >75 H, Urine WBC 10-15 H, Ur Epithelial Cells FEW, Urine Hemoglobin LARGE H, Urine Glucose NEG Microbiology 03/07 0510 URINE ROUT: Urine Culture - RECD Initial ED EKG: none Departure Departure Disposition: HOME OR SELF CARE Condition: Stable Clinical Impression Primary Impression: Hematuria Secondary Impressions: Urinary tract infection Referrals: Adali Walsh DO (PCP/Family) Departure Forms: Customer Survey General Discharge Information Prescriptions: Current Visit Scripts Sulfamethoxazole/Trimethoprim (Bactrim Ds Tablet) 1 TAB PO BID #14 TAB Comments discussed at length... pt referred to urology... wrote for bactrim. close follow up advised.
[2018-03-07] MEDS ORDERED: BACTRIM DS TAB1 EACH PO (05:30)
[2018-03-07 05:38] VITALS: BP 101/72
== END 2018-03-07 05:39 ==
LOC: ERH 04:52
DX: N39.0 Urinary tract infection, site not specified (principal)
CPT/HCPCS: 81001; 87086